=== PATIENT | female | born 1945 | race Caucasian/White ===

== ENCOUNTER → 2018-04-11 08:41 | Outpatient (CLI) | payer MEDICARE, OTHER, SELFPAY ==
[2018-04-11 09:20] LABS: Hemoglobin A1C% w Est Avg Glu 6.5 % (4.0-6.0)
[2018-04-11 09:42] LABS: Alanine Aminotransferase 24 IU/L (9-52); Albumin 4.2 g/dL (3.5-5.0); Albumin Globulin Ratio 1.3 (1.0-2.8); Alkaline Phosphatase 56 U/L (38-126); Aspartate Aminotransferase 16 IU/L (14-36); Bilirubin Total 0.3 mg/dL (0.2-1.3); Blood Urea Nitrogen 16 mg/dL (7-17); Calcium 9.7 mg/dL (8.4-10.2); Carbon Dioxide 30 mmol/L (22-32); Chloride 99 mmol/L (98-107); Cholesterol 297 mg/dL (140-199); Estimated Glomerular Filt Rate > 60.0 mL/min (>60); Globulin 3.3 g/dL (1.7-4.1); Glucose 161 mg/dL (80-110); HDL Cholesterol 73 mg/dL (40-60); HEMOLYSIS < 15 (0-50); LDL Cholesterol Calculated 201 mg/dL (<100); Potassium 3.8 mmol/L (3.4-5.1); Sodium 138 mmol/L (137-145); Total Protein 7.5 g/dL (6.3-8.2); Triglycerides 115 mg/dL (35-150)
[2018-04-11 09:45] LABS: Creatinine Urine Random 90.5 mg/dL
[2018-04-11 09:48] LABS: Microalbumi Creatinin Ratio Ur 6.6 ug/mg CR (<30); Microalbumin Urine Random < 0.6 mg/dL (0-1.6)
== END ==
PROVIDERS: Visit Provider Physician Assistant
DX: I10 Essential (primary) hypertension (principal); M10.9 Gout, unspecified; R73.01 Impaired fasting glucose; Z13.220 Encounter for screening for lipoid disorders; Z13.6 Encounter for screening for cardiovascular disorders
CPT/HCPCS: 36415; 80053; 80061; 82043; 82570; 83036; 84550

== ENCOUNTER → 2018-04-28 09:44 | Outpatient (CLI) | payer MEDICARE, OTHER, SELFPAY ==
[2018-04-30 17:58] LABS: Fecal Immunochemical Test NOT DETECTED (NOT DETECTED)
== END ==
PROVIDERS: PCP Physician Assistant; Visit Provider Physician Assistant
DX: Z12.11 Encounter for screening for malignant neoplasm of colon (principal)
CPT/HCPCS: 82274

== ENCOUNTER → 2018-10-24 08:56 | Outpatient (CLI) | payer MEDICARE, OTHER, SELFPAY ==
[2018-10-24 09:52] LABS: Blood Urea Nitrogen 12 mg/dL (7-17); Calcium 10.5 mg/dL (8.4-10.2); Carbon Dioxide 30 mmol/L (22-32); Chloride 102 mmol/L (98-107); Cholesterol 267 mg/dL (140-199); Estimated Glomerular Filt Rate > 60.0 mL/min (>60); Glucose 135 mg/dL (80-110); HDL Cholesterol 75 mg/dL (40-60); HEMOLYSIS < 15 (0-50); LDL Cholesterol Calculated 167 mg/dL (<100); Potassium 3.7 mmol/L (3.4-5.1); Sodium 140 mmol/L (137-145); Triglycerides 127 mg/dL (35-150)
== END ==
PROVIDERS: PCP Physician Assistant; Visit Provider Physician Assistant
DX: E11.9 Type 2 diabetes mellitus without complications (principal); E78.2 Mixed hyperlipidemia; I10 Essential (primary) hypertension
CPT/HCPCS: 36415; 80048; 80061; 83036

== ENCOUNTER → 2018-11-19 13:55 | Outpatient (CLI) | payer MEDICARE, OTHER, SELFPAY ==
[2018-11-19 14:27] LABS: BUN Creatinine Ratio 17.1 (6-22); Blood Urea Nitrogen 12 mg/dL (7-17); Estimated Glomerular Filt Rate > 60.0 mL/min (>60)
--- NOTE | 2018-11-19 14:53 | DI.CT.S_ITS ---
PROCEDURE: CT ABDOMEN PELVIS W CON INDICATIONS: right groin pain TECHNIQUE: After the administration of oral and intravenous contrast, 5 mm thick sections acquired from the diaphragms to the symphysis. 5 mm thick coronal and sagittal reformats were performed. For radiation dose reduction, the following was used: automated exposure control, adjustment of mA and/or kV according to patient size. COMPARISON: [facility], CT, ABDOMEN/PELVIS WITH CONTRAST, 02/22/2016, 15:58. FINDINGS: Image quality: Excellent. ABDOMEN: Lung bases: Lung bases are clear. Heart size is normal. Solid organs: Hepatic steatosis. Gallbladder not well seen. Prominence of the extra hepatic bile duct although this is unchanged since 2017. Pancreas enhances normally. There is also diffuse prominence of the pancreatic duct which is probably unchanged. Spleen is normal in size and enhancement. Diffuse left adrenal nodular hypertrophy, with unchanged appearance since 2017. The right adrenal gland is unremarkable. Mild bilateral renal cortical scarring/atrophy, and no hydronephrosis. Renal hilar vascular calcifications. Peritoneum and bowel: Stomach, small bowel, and colon loops are normal in caliber and wall thickness. No free fluid or air. Nodes and vessels: No retroperitoneal or mesenteric adenopathy. Aorta and inferior vena cava are normal in caliber. Numerous short opacifications seen throughout aorta. There is suspected left common iliac artery stent, although evaluation limited by vascular calcifications. Miscellaneous: Tiny fat containing umbilical hernia. There is also a supraumbilical ventral hernia containing fat with hazy attenuation, unchanged since 2017.. PELVIS: Genitourinary: Bladder wall thickness is normal. Miscellaneous: Small 1 cm fat containing right inguinal hernia is noted with unchanged appearance since the prior study. No femoral hernia identified. No pelvic adenopathy. Bones: No suspicious bony lesions. No vertebral body compression fractures. Diffuse osteopenia. Multilevel spondylosis. IMPRESSION: Unchanged appearance of small fat-containing right inguinal hernia, as well as supraumbilical ventral hernia since 2017. Hepatic steatosis. Elsewhere, no acute process. Additional chronic and incidental findings as above. Dictated by: Rolf Barakat M.D. on 11/19/2018 at 15:20 Approved by: Rolf Barakat M.D. on 11/19/2018 at 15:29
== END ==
PROVIDERS: PCP Physician Assistant; Visit Provider Surgery
DX: R10.31 Right lower quadrant pain (principal); K76.0 Fatty (change of) liver, not elsewhere classified; K40.90 Unilateral inguinal hernia, without obstruction or gangrene, not specified as recurrent; M85.80 Other specified disorders of bone density and structure, unspecified site; M47.819 Spondylosis without myelopathy or radiculopathy, site unspecified
CPT/HCPCS: 36415; 74177; 82565; 84520; 99214; Q9967

== ENCOUNTER 2018-11-25 06:38 | Day surgery (SDC) | payer MEDICARE, OTHER, SELFPAY ==
[2018-11-21 07:22] VITALS: BMI 28.7
[2018-11-25] VITALS (10 sets, daily range): BP systolic 151–176; BP diastolic 66–100; PULSE 57–98; RESP 12–16; TEMP 35.9–36.3; O2SAT 92–98; BMI 28.7
[2018-11-25] MEDS: LACTATED RINGERS 1,000 ML 100 ML IV (07:18)
--- NOTE | 2018-11-25 07:30 | SUR.OPER ---
Supine on padded OR bed, head on pillow, arms secured on padded arm boards at <90 degrees abduction, legs uncrossed, safety belt at thigh, tape over blanket over lower legs.
--- NOTE | 2018-11-25 07:38 | PM.PREOP ---
Pre-operative Note Interval Note History & Physical reviewed/Exam performed by Physician: Yes Changes to H&P: No
[2018-11-25] MEDS: INSULIN REGULAR 100 UNIT/ML 3 ML VIAL IV (07:44)
[2018-11-25] MEDS: CARVEDILOL 25 MG TABLET PO (07:45)
[2018-11-25] MEDS: CEFAZOLIN 2 GM/100 ML FROZ.PIGGY IV (07:50)
[2018-11-25] MEDS: BUPIVACAINE 0.25% (PF) VIAL 30 ML INJ (08:23)
--- NOTE | 2018-11-25 08:57 | SUR.PHASEI ---
reported off to Tameka MICHAUD at this time.
--- NOTE | 2018-11-25 08:58 | PM.OP.1 ---
Operative Date/Time/Diagnoses Date of procedure: 11/25/18 Time of procedure: 08:58 Pre-op diagnosis: right inguinal hernia Post-op diagnosis: same Procedure & Clinicians Same procedure as scheduled: Yes Indications: This 73-year-old female with right groin pain underwent imaging that demonstrated AA right inguinal hernia fat containing. She presented for elective laparoscopic repair with mesh. Surgeon: Abraham Blanco Click Yes if Unassisted: Yes Anesthesia Type: General Operative Notes Findings: direct hernia defect containing fat Specimen(s): none sent Estimated Blood Loss (mL): 10 Procedure in detail: The patient was brought to the operating room and placed supine on the table. Bilateral sequential compression devices were applied. General anesthesia was induced and they were intubated with an endotracheal tube. They received 2 g acne prior to skin incision. They were prepped and draped in sterile fashion. A time out was performed to ensure the correct patient, procedure and necessary equipment within the operating room. The skin was infiltrated with 0.25% bupivicaine. A 1 cm supraumbilical midline incision was made. The umbilical stalk was elevated the fascia sharply incised and the abdomen entered traumatically. A 10mm balloon port was placed and pneumoperitoneum was established at 15mm Hg. Insepction of the abdomen demonstrated no evidence of injury upon entry. Two 5 mm ports were then placed under direct visualization in the right and left lower quadrant lateral to the rectus muscle. A right direct hernia was observed. The peritoneum 3 cm superior to the myopectineal orifice between the medial umbilical ligament and the anterior superior iliac spine was incised. The peritoneal flap was retracted and the preperitoneal tissue was dissected off the flap. This was continued until a cylinder of peritoneal tissue comprising the hernia sac extending into the direct defect was identified and sac reduced back into the peritoneal cavity. The the round ligament was identified and transected. A Bard 3D Max mesh was then placed into the abdomen and positioned such that the myopectineal orifice was completely covered with good overlap on all sides. The mesh was anchored to the Taurus?s ligament. The peritoneal flap was then repositioned back to its original position and tacks were used to anchor it in position such that no bowel could herniate into the preperitoneal space. The area was examined for hemostasis. The 5mm trocars were removed under direct visualization and pneumoperitoneum was deflated through the umbilical trocar, The fascia at the umbilicus was closed with 0-Vicryl in figure of 8 fashion, skin closed with 4-0 Monocyl followed by Dermabond. The sponge and instrument count at the end of the case was correct. Both testicles were entirely within the scrotum at the end of the case. The patient emerged from anesthsia was extubated and transferred to recovery in stable condition. Complications: none Post-operative Condition: stable Disposition: same day surgery
--- NOTE | 2018-11-25 09:28 | SUR.PHASEI ---
Patient A/O x 4. SHARP's x 4. Tolerating po. Dressing CDI. Ice pack applied.
[2018-11-25] MEDS: OXYCODONE/ACETAMINOPHEN 5/325 TABLET 1 TAB PO ×2 (09:30→10:18)
--- NOTE | 2018-11-25 09:32 | SUR.PHASEI ---
Gave po pain medication for c/o 5\10 pain.
== END 2018-11-25 10:51 | disposition home or self-care (01) ==
PROVIDERS: PCP Physician Assistant; Visit Provider Surgery
PROC: 0YQ54ZZ Repair Right Inguinal Region, Percutaneous Endoscopic Approach (ICD-10-PCS; CPT 49650; principal; 2018-11-25 07:45)
DX: K40.90 Unilateral inguinal hernia, without obstruction or gangrene, not specified as recurrent (principal); E11.9 Type 2 diabetes mellitus without complications
CPT/HCPCS: 49650; 49560; C1781; J0171; J0690; J1100; J2250; J2405; J2704; J3010

== ENCOUNTER → 2019-01-16 08:24 | Outpatient (CLI) | payer MEDICARE, OTHER, SELFPAY ==
[2019-01-16 09:27] LABS: Calcium 10.4 mg/dL (8.4-10.2); Cholesterol 208 mg/dL (140-199); HDL Cholesterol 69 mg/dL (40-60); LDL Cholesterol Calculated 112 mg/dL (<100); Triglycerides 134 mg/dL (35-150)
[2019-01-20 13:51] LABS: Parathyroid Hormone Int 59 pg/mL (14-64)
[2019-01-20 15:12] LABS: Ionized Calcium 5.2 mg/dL (4.8-5.6)
== END ==
PROVIDERS: PCP Physician Assistant; Visit Provider Physician Assistant
DX: E83.52 Hypercalcemia (principal); E78.2 Mixed hyperlipidemia
CPT/HCPCS: 36415; 80061; 82310; 82330; 83970

== ENCOUNTER 2019-07-23 09:40 | Emergency (ER) | payer MEDICARE, OTHER, SELFPAY ==
--- NOTE | 2019-07-23 09:46 | ED.GENADULT ---
HPI - General Adult General Chief complaint: Back Pain/Injury Stated complaint: 'owie in back' that goes down the leg Time Seen by Provider: 07/23/19 09:41 Source: patient Mode of arrival: Ambulatory Limitations: no limitations History of Present Illness HPI narrative: 74-year-old female here for evaluation of right lower back pain radiating into her right upper leg. She states that she had the same symptoms 2 nights ago where she was seen in outside facility. She states that she was given medications through an IV which completely resolved her symptoms. States that she felt well yesterday however this morning she woke up and she was trying to get out of bed the pain returned. She states she did urinate on herself this morning but that was because she could not get out of bed in time. No fevers. No bowel symptoms. Does have bilateral iliac stents placed secondary to obstructions that was done 2 years ago. Related Data Home Medications Medication Instructions Recorded Confirmed aspirin 81 mg PO QDAY #0 10/11/16 01/19/19 carvedilol 25 mg tablet 25 mg PO BID 04/29/18 01/19/19 potassium chloride 10 mEq 10 meq PO BID 04/29/18 01/19/19 capsule,extended release coenzyme Q10 100 mg capsule 100 mg PO DAILY 06/18/18 01/19/19 Previous Rx's Medication Instructions Recorded meloxicam 7.5 mg tablet 7.5 mg PO DAILY PRN #30 tab 11/20/18 acetaminophen [Tylenol] 650 mg PO QID PRN #60 cap 11/25/18 citalopram 40 mg tablet 40 mg PO QDAY #30 tab 01/13/19 magnesium chloride 64 mg 64 mg PO DAILY #30 tab 01/19/19 (magnesium chloride) tablet,delayed release Disabled Parking Placard #1 ea 03/09/19 rosuvastatin 10 mg tablet 10 mg PO BEDTIME #90 tab 03/23/19 amlodipine 5 mg tablet 5 mg PO QDAY #30 tab 06/12/19 furosemide 40 mg tablet 40 mg PO DAILY #30 tab 06/12/19 lisinopril 20 mg tablet 20 mg PO BID #60 tab 06/12/19 cyclobenzaprine 10 mg PO TID PRN #12 tab 07/23/19 tramadol [Ultram] 50 mg PO Q8H PRN #10 tab 07/23/19 Allergies Allergy/AdvReac Type Severity Reaction Status Date / Time vitamin E (d-alpha AdvReac Intermediate LITTLE Verified 07/23/19 09:52 tocopherol) RED ITCHY [VITAMIN E] STRAWBERRY BUMPS Review of Systems Constitutional Constitutional: Denies fever(s) and Denies headache(s) ENT Ears, Nose, Mouth, and Throat: Denies headache(s) and Denies sore throat Cardiovascular Cardiovascular: Denies chest pain and Denies dyspnea Respiratory Respiratory: Denies cough and Denies dyspnea Gastrointestinal Gastrointestinal: Denies abdominal pain, Denies change in bowel habits, Denies diarrhea and Denies loose stools Genitourinary Genitourinary: Denies urinary hesitancy, Denies urinary incontinence and Denies urinary urgency Genitourinary: Denies urinary incontinence, Denies urinary hesitancy and Denies urinary urgency Musculoskeletal Musculoskeletal: Reports back pain (Right lower back) Integumentary/Breasts Skin/Breast: Denies lesions and Denies rash Neurologic Neurologic: Denies behavioral changes and Denies headache(s) Comments: Some tingling right lower extremity Psychiatric Psychiatric: Denies behavioral changes Hematologic/Lymphatic Hematologic/Lymphatic: Denies easy bleeding and Denies easy bruising Patient History Medical History Cervical cancer (Resolved 1975) Chronic back pain (Chronic 1963) Depression (Chronic 2000) Diabetes (Chronic Unknown) Hypercholesterolemia (Chronic Unknown) Hypertension (Chronic Unknown) Leg pain, bilateral (Resolved ~2016) Peripheral vascular disease (Acute) Rubella (Resolved 1968) Urinary incontinence (Chronic 2012) Surgical History (Updated 11/21/18 @ 07:37 by Shazia Storey RN) History of esophagogastroduodenoscopy (EGD) (Acute ~2017) History of intravascular stent placement (Acute) Status post cholecystectomy Status post hysterectomy Family History Father Stroke Hypertension Mother High cholesterol Hypertension Cardiovascular disease Diabetes mellitus Amputated right leg Smoker EtOH dependence Social History household members: spouse Smoking Status: Former smoker Tobacco: How many years used: 12 second hand exposure: No alcohol intake: former substance use type: marijuana Smoking Status: Former smoker Substance Use Type: marijuana Exam Initial Vital Signs Initial Vital Signs: Vital Signs Temperature 98.5 F 07/23/19 09:49 Pulse Rate 73 07/23/19 09:49 Respiratory Rate 16 07/23/19 09:49 Blood Pressure 205/91 H 07/23/19 09:49 Pulse Oximetry 97 07/23/19 09:49 Const General: cooperative, No comfortable (Uncomfortable), well developed and well groomed Limitations: mental status not altered HENMT Head: normal to inspection and normocephalic Resp Effort & Inspection: normal respiratory effort Cardio Rate: regular rate Pulses: dorsalis pedis present bilaterally Back/Spine/Pelvis Back: No CVA tenderness Thoracic/Lumbar Spine: paraspinal tenderness (Right lumbar), No thoracic spinal tenderness and No lumbar spinal tenderness Skin Lesions: no lesions Rashes: no rashes Neuro General: patient alert and patient awake Extrem General: normal to inspection and capillary refill normal Psych Appearance: grossly normal and well kempt Scores GCS Speed coma scale eye opening: Spontaneous Camron coma scale verbal response: Orientated Camron coma scale motor response: Obey commands Speed coma scale total score: 15 Course Orders Ordered: Discontinued Medications Morphine Sulfate (Morphine) 4 mg IM NOW ONE Stop: 07/23/19 09:55 Last Admin: 07/23/19 10:05 Dose: 4 mg Documented by: KENDALL Vital Signs Vital signs: Vital Signs - 8 hr 07/23/19 09:49 07/23/19 11:05 Temperature 98.5 F Pulse Rate 73 61 Respiratory Rate 16 16 Blood Pressure 205/91 H Blood Pressure [Left Arm] 183/86 H Pulse Oximetry 97 96 Medical Decision Making Medical Records Medical records reviewed: Yes I reviewed the patient's medical records. MDM Narrative Medical decision making narrative: Received fax from the patient's emergency department visit at an outside facility from 3 days ago. According to this note patient presented at that time very similar to how she presents today. During that visit she received a CT scan of her abdomen pelvis which showed atherosclerotic aortic disease however a normal size caliber aorta. There was no signs of kidney stones. She also had an ultrasound of her lower back which showed no foreign body and no definitive lipoma. Patient does have a follow-up with her primary doctor this afternoon. I do have a strong suspicion that patient's symptoms today are musculoskeletal in origin. I feel we can hold on radiologic studies since she had fairly extensive workup just 3 days ago for the same pain that brought her in today. She feels much better after the medication she was given here today. Will send home with symptom control. Her prescriptions were electronically sent to the pharmacy of her choice. She was given return precautions. She expressed understanding and agreement. Patient ambulated to the bathroom prior to discharge. Discharge Plan Departure Patient Disposition: Home Clinical Impression: Lower back pain Qualifiers: Chronicity: acute Back pain laterality: right Sciatica presence: without sciatica Qualified Code(s): M54.5 - Low back pain Instructions: DI for Back Spasm Activity Restrictions/Additional Instructions: Recommend that you keep your appointment with your primary doctor this afternoon. Prescriptions were sent to [facility]. Return to the emergency department for any new symptoms. Prescriptions: New cyclobenzaprine 10 mg tablet 10 mg PO TID PRN (Reason: muscle spasm) Qty: 12 RF: 0 tramadol [Ultram] 50 mg tablet 50 mg PO Q8H PRN (Reason: pain) Qty: 10 RF: 0 No Action aspirin 81 MG tablet,delayed release (DR/EC) 81 mg PO QDAY Qty: 0 RF: 0 carvedilol 25 mg tablet 25 mg PO BID RF: 0 potassium chloride 10 mEq capsule, extended release 10 meq PO BID RF: 0 meloxicam 7.5 mg tablet 7.5 mg PO DAILY PRN (Reason: arthritis pain) Qty: 30 RF: 6 citalopram 40 mg tablet 40 mg PO QDAY Qty: 30 RF: 6 (DME) Disabled Parking Placard Qty: 1 RF: 0 rosuvastatin 10 mg tablet 10 mg PO BEDTIME Qty: 90 RF: 1 amlodipine [Norvasc] 5 mg tablet 5 mg PO QDAY Qty: 30 RF: 3 lisinopril 20 mg tablet 20 mg PO BID Qty: 60 RF: 6 furosemide 40 mg tablet 40 mg PO DAILY Qty: 30 RF: 3 magnesium chloride 64 mg tablet,delayed release (DR/EC) 64 mg PO DAILY Qty: 30 RF: 3 coenzyme Q10 [Co Q-10] 100 mg capsule 100 mg PO DAILY RF: 0 acetaminophen [Tylenol] 325 mg capsule 650 mg PO QID PRN (Reason: pain) Qty: 60 RF: 0 Referrals: Faith Belcher ARNP [Primary Care Provider] -
[2019-07-23 09:49] VITALS: BP 205/91; PULSE 73; RESP 16; TEMP 36.9; O2SAT 97; BMI 29.9
--- NOTE | 2019-07-23 09:49 | PC.NURSE ---
Pt denies loss bowel/bladder. pt denies injury
[2019-07-23] MEDS: MORPHINE 4 MG/ML INJ IM (10:05)
[2019-07-23 11:05] VITALS: BP 183/86; PULSE 61; RESP 16; O2SAT 96
== END 2019-07-23 11:36 | disposition home or self-care (01) ==
PROVIDERS: Emergency Provider Emergency Medicine; PCP Nurse Practitioner
DX: M54.41 Lumbago with sciatica, right side (principal)
CPT/HCPCS: 96372; 99283; J2270

== ENCOUNTER → 2019-11-25 10:02 | Outpatient (CLI) | payer MEDICARE, OTHER, SELFPAY ==
[2019-11-25 12:09] LABS: Hemoglobin A1C% w Est Avg Glu 6.4 % (4.0-6.0)
[2019-11-25 12:27] LABS: Alanine Aminotransferase 15 IU/L (<35); Albumin 4.4 g/dL (3.5-5.0); Albumin Globulin Ratio 1.4 (1.0-2.8); Alkaline Phosphatase 80 U/L (38-126); Aspartate Aminotransferase 20 IU/L (14-36); Bilirubin Total 0.4 mg/dL (0.2-1.3); Blood Urea Nitrogen 11 mg/dL (7-17); Calcium 10.1 mg/dL (8.4-10.2); Carbon Dioxide 26 mmol/L (22-32); Chloride 104 mmol/L (98-107); Cholesterol 223 mg/dL (140-199); Estimated Glomerular Filt Rate > 60.0 mL/min (>60); Globulin 3.1 g/dL (1.7-4.1); Glucose 128 mg/dL (80-110); HDL Cholesterol 93 mg/dL (40-60); HEMOLYSIS < 15 (0-50); LDL Cholesterol Calculated 106 mg/dL (<100); Potassium 3.9 mmol/L (3.4-5.1); Sodium 138 mmol/L (137-145); Total Protein 7.5 g/dL (6.3-8.2); Triglycerides 119 mg/dL (35-150)
[2019-11-25 12:47] LABS: Free T3, Triiodothyronine Free 3.54 pg/mL (2.77-5.27); Free T4, Direct Thyroxine 1.07 ng/dL (0.78-2.19)
[2019-11-25 13:01] LABS: Thyroid Stimulating Hormone 1.11 uIU/mL (0.47-4.68)
[2019-11-25 15:45] LABS: Creatinine Urine Random 24.8 mg/dL
[2019-11-25 15:48] LABS: Microalbumi Creatinin Ratio Ur 84.6 ug/mg CR (<30); Microalbumin Urine Random 2.1 mg/dL (0-1.6)
[2019-11-26 09:22] LABS: Fecal Immunochemical Test Negative (Negative)
== END ==
PROVIDERS: PCP Nurse Practitioner; Referring Provider Nurse Practitioner; Visit Provider Nurse Practitioner
DX: E11.9 Type 2 diabetes mellitus without complications (principal); E78.2 Mixed hyperlipidemia; F41.8 Other specified anxiety disorders; I10 Essential (primary) hypertension; Z12.11 Encounter for screening for malignant neoplasm of colon; Z79.899 Other long term (current) drug therapy
CPT/HCPCS: 36415; 80053; 80061; 82043; 82274; 82570; 83036; 84439; 84443; 84481

== ENCOUNTER → 2019-12-04 11:11 | Outpatient (CLI) | payer MEDICARE, OTHER, SELFPAY ==
--- NOTE | 2019-12-04 12:02 | DI.CT.S_ITS ---
PROCEDURE: CT ABDOMEN PELVIS W CON INDICATIONS: LUQ pain r/o ventral hernia TECHNIQUE: After the administration of oral and intravenous contrast, 5 mm thick sections acquired from the diaphragms to the symphysis. 5 mm thick coronal and sagittal reformats were performed. For radiation dose reduction, the following was used: automated exposure control, adjustment of mA and/or kV according to patient size. COMPARISON: [facility], CT, CT ABDOMEN PELVIS W CON, 11/19/2018, 14:50. FINDINGS: Image quality: Excellent. ABDOMEN: Lung bases: Lung bases are clear. Heart size is normal. Solid organs: Liver is normal in size and enhancement. Gallbladder is surgically absent. Chronic dilatation of the entire the biliary tree post cholecystectomy. Chronic mild dilatation of the pancreatic duct as well. Pancreas enhances normally. Spleen is normal in size and enhancement. Unchanged chronic enlargement of the left adrenal, consistent with adenomatous change. Kidneys are normal in size and enhancement, without hydronephrosis. Peritoneum and bowel: Stomach, small bowel, and colon loops are normal in caliber and wall thickness. No free fluid or air. Nodes and vessels: No retroperitoneal or mesenteric adenopathy. Aorta and inferior vena cava are normal in caliber. Extensive aortic atherosclerotic calcifications. Patent bilateral common iliac artery stents. There is calcified plaque of the proximal left common iliac artery which narrows the diameter of the common iliac stent, with moderate common iliac artery stenosis noted. Miscellaneous: Small ventral hernia on image 29/2 at the level of the left lobe of the liver, containing fat. This is unchanged. PELVIS: Genitourinary: Bladder wall thickness is normal. Miscellaneous: No inguinal hernias or adenopathy. No evidence of right inguinal hernia. Uterus is surgically absent. Bones: No suspicious bony lesions. No vertebral body compression fractures. IMPRESSION: 1. As before, small ventral hernia anterior to the left lobe of the liver containing fat. 2. Extensive aortic atherosclerotic calcifications. 3. Patent bilateral common iliac artery stents. There is a moderate right common iliac artery stenosis secondary to chunky calcification outside of the stent. 4. No evidence of acute abdominal process. 5. Chronic dilatation of the biliary tree and pancreatic duct post cholecystectomy. 6. Remote hysterectomy. Dictated by: Abe Coughlin M.D. on 12/04/2019 at 13:54 Approved by: Abe Coughlin M.D. on 12/04/2019 at 14:02
== END ==
PROVIDERS: PCP Nurse Practitioner; Referring Provider Surgery; Visit Provider Surgery
DX: R10.12 Left upper quadrant pain (principal); K83.8 Other specified diseases of biliary tract; K86.89 Other specified diseases of pancreas; K43.9 Ventral hernia without obstruction or gangrene; I70.0 Atherosclerosis of aorta; I70.8 Atherosclerosis of other arteries; Z90.49 Acquired absence of other specified parts of digestive tract; Z90.710 Acquired absence of both cervix and uterus
CPT/HCPCS: 74177; Q9967

== ENCOUNTER 2020-01-13 08:30 | Emergency (ER) | payer MEDICARE, OTHER, SELFPAY ==
[2020-01-13 08:38] VITALS: BP 199/85; PULSE 82; RESP 18; TEMP 35; O2SAT 95; BMI 30.4
[2020-01-13 08:40] VITALS: PULSE 80
--- NOTE | 2020-01-13 08:44 | DI.RAD.S_ITS ---
PROCEDURE: XR KNEE LT 3V INDICATIONS: Medial pain after injury yesterday TECHNIQUE: 3 views of the knee were acquired. COMPARISON: None. FINDINGS: Bones: No fractures or dislocations. No suspicious bony lesions. Soft tissues: Mild joint effusion. No suspicious soft tissue calcifications. IMPRESSION: Mild effusion. No visualized acute fracture or dislocation. However, if clinical concern and/or pain persist, short interval imaging followup in 7-10 days is recommended, as occult injury cannot be definitively excluded. Dictated by: Cecy Thompson M.D. on 01/13/2020 at 8:14 Approved by: Cecy Thompson M.D. on 01/13/2020 at 8:21
--- NOTE | 2020-01-13 08:49 | ED_ITS ---
HPI - General Adult General Chief complaint: Extremity Injury, Lower Stated complaint: 'blew out my knee yesterday' Time Seen by Provider: 01/13/20 08:30 Source: patient Mode of arrival: Wheelchair Limitations: no limitations History of Present Illness HPI narrative: 74-year-old female here for evaluation of left knee pain. Patient states that yesterday when she got out of her car she felt/heard a pop on the inside of her right knee. Since then she has had discomfort with straightening her leg and also with standing. She states that for years she had a ?bulge? on the inside of her knee. I did not cause her any problems and she thought that whatever happened yesterday was related to this bulge. Has had no prior knee injuries. No prior knee surgeries. Related Data Home Medications Medication Instructions Recorded Confirmed aspirin 81 mg PO QDAY #0 10/11/16 11/25/19 potassium chloride 10 mEq 10 meq PO BID 04/29/18 11/25/19 capsule,extended release coenzyme Q10 100 mg capsule 100 mg PO DAILY 06/18/18 11/25/19 Previous Rx's Medication Instructions Recorded acetaminophen [Tylenol] 650 mg PO QID PRN #60 cap 11/25/18 magnesium chloride 64 mg 64 mg PO DAILY #30 tab 01/19/19 (magnesium chloride) tablet,delayed release Disabled Parking Placard #1 ea 03/09/19 lisinopril 20 mg tablet 20 mg PO BID #60 tab 06/12/19 cyclobenzaprine 10 mg PO TID PRN #12 tab 07/23/19 citalopram 40 mg tablet 40 mg PO QDAY #90 tab 09/21/19 rosuvastatin 10 mg tablet 10 mg PO BEDTIME #90 tab 09/21/19 amlodipine 5 mg tablet 5 mg PO QDAY #90 tab 11/25/19 furosemide 40 mg tablet 40 mg PO DAILY #90 tab 11/25/19 Allergies Allergy/AdvReac Type Severity Reaction Status Date / Time vitamin E (d-alpha AdvReac Intermediate LITTLE Verified 11/25/19 10:56 tocopherol) RED ITCHY [VITAMIN E] STRAWBERRY BUMPS Review of Systems Constitutional Constitutional: Denies fever(s) Musculoskeletal Musculoskeletal: Denies tingling Comments: Left knee pain Integumentary/Breasts Skin/Breast: Denies lesions and Denies rash Neurologic Neurologic: Denies behavioral changes and Denies tingling Psychiatric Psychiatric: Denies behavioral changes Hematologic/Lymphatic Hematologic/Lymphatic: Denies easy bleeding and Denies easy bruising Patient History Medical History (Updated 01/13/20 @ 09:33 by Terry Lemus DO) Cervical cancer (1975) Chronic back pain (1963) Depression (2000) Diabetes (Unknown) Hernia of abdominal wall Hypercholesterolemia (Unknown) Hypertension (Unknown) Leg pain, bilateral (~2017) Peripheral vascular disease Rubella (1968) Urinary incontinence (2012) Surgical History History of esophagogastroduodenoscopy (EGD) (~2016) History of intravascular stent placement Status post cholecystectomy Status post hysterectomy Family History Father Stroke Hypertension Mother High cholesterol Hypertension Cardiovascular disease Diabetes mellitus Amputated right leg Smoker EtOH dependence Social History household members: spouse Smoking Status: Former smoker Tobacco: How many years used: 12 second hand exposure: No alcohol intake: former substance use type: marijuana Smoking Status: Former smoker Substance Use Type: marijuana Exam Initial Vital Signs Initial Vital Signs: Vital Signs Temperature 95 F L 01/13/20 08:38 Pulse Rate 82 01/13/20 08:38 Respiratory Rate 18 01/13/20 08:38 Blood Pressure 199/85 H 01/13/20 08:38 Pulse Oximetry 95 01/13/20 08:38 Const General: cooperative and comfortable Limitations: mental status not altered HENCA Head: normal to inspection and normocephalic Resp Effort & Inspection: normal respiratory effort Cardio Rate: regular rate Extrem Other: No tenderness to palpation over the quadriceps or patellar tendon. No proximal fibular head tenderness. No hamstring tenderness. No lateral joint line tenderness. Does have tenderness to palpation along the anterior portion of the medial joint line. There is no effusion. ACL MCL PCL and LCL all intact with functional testing. Patient able to bend her knee however it does hurt on the medial joint line. Is able to do a straight leg raise. Psych Appearance: grossly normal and well kempt Procedures Orthopedic Splinting/Casting Injury #1: Side: left Lower Extremity Injury Location: knee Lower Extremity Immobilizer: Norberto wrap Other Orthopedic Equipment: crutches Post splinting neuro exam: intact Post splinting vascular exam: intact Placed by: Nursing Course Orders Ordered: ED Orders 01/13/20 08:44 XR knee LT 3V Stat Vital Signs Vital signs: Vital Signs - 8 hr 01/13/20 08:38 01/13/20 08:40 Temperature 95 F L Pulse Rate 82 Pulse Rate [Left Dorsalis Pedis] 80 Respiratory Rate 18 Blood Pressure 199/85 H Pulse Oximetry 95 Medical Decision Making Imaging Data Extremity x-ray #1: Radiologist's Impression: [address] [id number] ReportSigned Patient: Amie Painter KMR#: [id number]: 8Acct:[id number]/Sex: 74 / FDate of Service: 01/13/20Loc: EDAccession Number: [id number] Procedure: XR knee LT 3V Ordering Provider: Terry Lemus D.O. PROCEDURE: XR KNEE LT 3V INDICATIONS: Medial pain after injury yesterday TECHNIQUE: 3 views of the knee were acquired. COMPARISON: None. FINDINGS: Bones: No fractures or dislocations. No suspicious bony lesions. Soft tissues: Mild joint effusion. No suspicious soft tissue calcifications. IMPRESSION: Mild effusion. No visualized acute fracture or dislocation. However, if clinical concern and/or pain persist, short interval imaging followup in 7-10 days is recommended, as occult injury cannot be definitively excluded. Dictated by: Cecy Thompson M.D. on 01/13/2020 at 8:14 Approved by: Cecy Thompson M.D. on 01/13/2020 at 8:21 [facility] Narrative Medical decision making narrative: Patient is neurovascularly intact. No fracture seen on the x-rays. I do suspect a meniscal injury given her clinical presentation. No indication for MRI here in the emergency department. Will send home with an Norberto bandage and crutches. She is going to follow up with her primary provider. She was given return precautions. She expressed understanding and agreement. Discharge Plan Departure Patient Disposition: Home Clinical Impression: Injury, knee Instructions: How to Use Crutches, How to Use an Elastic Bandage-Knee Sprain, How To Perform RICE (Rest, Ice, Compress, Elevate) Activity Restrictions/Additional Instructions: Continue all of your medications as directed. Use the crutches and the Norberto bandage as needed. There were no fractures on the x-ray so you can put pressure on your leg has you tolerate. Contact your primary provider today to schedule a follow-up for after the holidays. Return to the emergency department for any new symptoms Prescriptions: No Action aspirin 81 MG tablet,delayed release (DR/EC) 81 mg PO QDAY Qty: 0 RF: 0 potassium chloride 10 mEq capsule, extended release 10 meq PO BID RF: 0 (DME) Disabled Parking Placard Qty: 1 RF: 0 lisinopril 20 mg tablet 20 mg PO BID Qty: 60 RF: 6 citalopram 40 mg tablet 40 mg PO QDAY Qty: 90 RF: 1 rosuvastatin 10 mg tablet 10 mg PO BEDTIME Qty: 90 RF: 3 furosemide 40 mg tablet 40 mg PO DAILY Qty: 90 RF: 3 amlodipine [Norvasc] 5 mg tablet 5 mg PO QDAY Qty: 90 RF: 3 magnesium chloride 64 mg tablet,delayed release (DR/EC) 64 mg PO DAILY Qty: 30 RF: 3 coenzyme Q10 [Co Q-10] 100 mg capsule 100 mg PO DAILY RF: 0 acetaminophen [Tylenol] 325 mg capsule 650 mg PO QID PRN (Reason: pain) Qty: 60 RF: 0 cyclobenzaprine 10 mg tablet 10 mg PO TID PRN (Reason: muscle spasm) Qty: 12 RF: 0 Referrals: Faith Belcher ARNP [Primary Care Provider] -
--- NOTE | 2020-01-13 10:08 | PC.NURSE ---
provided pt a walker instead of crutches, dr ornelas aware.
[2020-01-13 10:10] VITALS: BP 188/81; PULSE 76; RESP 18; O2SAT 98
== END 2020-01-13 10:11 | disposition home or self-care (01) ==
PROVIDERS: Emergency Provider Emergency Medicine; PCP Nurse Practitioner
DX: S89.92XA Unspecified injury of left lower leg, initial encounter (principal); Z79.82 Long term (current) use of aspirin
CPT/HCPCS: 73562; 99283

== ENCOUNTER → 2020-01-20 15:16 | Outpatient (CLI) | payer MEDICARE, OTHER, SELFPAY ==
--- NOTE | 2020-01-20 15:19 | DI.MRI.S_ITS ---
PROCEDURE: MR KNEE LT WO CON INDICATIONS: r/o left knee miniscus tear TECHNIQUE: Noncontrast sagittal PD fast spin echo and T2 fast spin echo with fat saturation, sagittal 3-D FLASH with fat saturation; coronal T1 spin echo and PD fast spin echo with fat saturation, and axial PD fast spin echo with fat saturation through the knee. COMPARISON: [facility], CR, XR KNEE ARTHRITIC SERIES BI, 03/14/2016, 16:06. [facility], CR, XR KNEE LT 3V, 01/13/2020, 8:55. FINDINGS: Image quality: Excellent. Menisci: There is complex tear of the posterior horn and body of the medial meniscus. The free edge of the posterior horn and body body appears truncated. The lateral meniscus demonstrates normal morphology and internal signal. The meniscal root ligaments appear intact. Cruciate ligaments: The anterior and posterior cruciate ligaments appear intact. Medial structures: The medial collateral ligament appears intact. The semimembranosus tendon insertions and meniscocapsular junction appear intact. Visualized portions of the pes anserinus tendons appear normal. No abnormal bursal fluid. Lateral structures: The lateral collateral ligament, long and short heads of the biceps femoris tendon appear intact. The popliteus tendon appears normal. Iliotibial band appears normal. Anterior structures: The quadriceps and patellar tendons appear intact. Patellar alignment is normal. No femoral trochlear dysplasia or ventral trochlear prominence. There is infrapatellar fat pad.edema. Bones and cartilage: No bone marrow contusions or fractures. 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 There is bone marrow edema in the medial tibial plateau, likely reactive changes related to near [id number]. There is full-thickness defect in the inferior lateral aspect of patella with associated subchondral edema and cystic change. Joint space: There is moderate sized knee joint fluid. A moderate-sized Pizarro's cyst. Normal appearing synovial plicae are incidentally noted. IMPRESSION: 1. Complex tear of the posterior horn and body of the medial meniscus. 2. 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 3. Chondromalacia patella with full-thickness cartilage defect in the lateral inferior aspect of the patella with associated subchondral edema and cystic change. There is edema in the infrapatellar fat pad. The findings suggest infrapatellar fat pad impingement. 4. Moderate knee joint effusion. 5. A moderate-sized Pizarro cyst. Dictated by: Lainey Kearney M.D. on 01/20/2020 at 16:28 Approved by: Lainey Kearney M.D. on 01/20/2020 at 17:51
== END ==
PROVIDERS: PCP Nurse Practitioner; Referring Provider Nurse Practitioner; Visit Provider Nurse Practitioner
DX: S83.232A Complex tear of medial meniscus, current injury, left knee, initial encounter (principal); M22.42 Chondromalacia patellae, left knee; M25.462 Effusion, left knee; M71.22 Synovial cyst of popliteal space [Baker], left knee; X58.XXXA Exposure to other specified factors, initial encounter
CPT/HCPCS: 73721

== ENCOUNTER → 2020-09-22 07:57 | Outpatient (CLI) | payer MEDICARE, OTHER, SELFPAY ==
[2020-09-22 10:29] LABS: Hemoglobin A1C% w Est Avg Glu 6.5 % (4.0-6.0)
[2020-09-22 10:47] LABS: Alanine Aminotransferase 16 IU/L (<35); Albumin 4.2 g/dL (3.5-5.0); Albumin Globulin Ratio 1.4 (1.0-2.8); Alkaline Phosphatase 66 U/L (38-126); Aspartate Aminotransferase 21 IU/L (14-36); BUN Creatinine Ratio 21.1 (6-22); Bilirubin Total 0.4 mg/dL (0.2-1.3); Blood Urea Nitrogen 12 mg/dL (7-17); Calcium 10.4 mg/dL (8.4-10.2); Carbon Dioxide 25 mmol/L (22-32); Chloride 106 mmol/L (98-107); Cholesterol 314 mg/dL (140-199); Estimated Glomerular Filt Rate > 60.0 mL/min (>60); Globulin 3.1 g/dL (1.7-4.1); Glucose 157 mg/dL (80-110); HDL Cholesterol 82 mg/dL (40-60); HEMOLYSIS < 15 (0-50); LDL Cholesterol Calculated 201 mg/dL (<100); Magnesium 1.8 mg/dL (1.6-2.3); Potassium 4.2 mmol/L (3.4-5.1); Sodium 139 mmol/L (137-145); Total Protein 7.3 g/dL (6.3-8.2); Triglycerides 157 mg/dL (35-150)
[2020-09-22 10:54] LABS: Free T3, Triiodothyronine Free 3.44 pg/mL (2.77-5.27); Free T4, Direct Thyroxine 0.93 ng/dL (0.78-2.19)
[2020-09-22 11:07] LABS: Thyroid Stimulating Hormone 1.15 uIU/mL (0.47-4.68)
== END ==
PROVIDERS: PCP Nurse Practitioner; Referring Provider Nurse Practitioner; Visit Provider Nurse Practitioner
DX: E11.9 Type 2 diabetes mellitus without complications (principal); E78.2 Mixed hyperlipidemia; I10 Essential (primary) hypertension; I73.9 Peripheral vascular disease, unspecified; Z79.899 Other long term (current) drug therapy; E83.42 Hypomagnesemia
CPT/HCPCS: 36415; 80053; 80061; 83036; 83735; 84439; 84443; 84481

== ENCOUNTER → 2020-09-26 17:54 | Outpatient (CLI) | payer MEDICARE, OTHER, SELFPAY ==
[2020-09-26 18:47] LABS: Creatinine Urine Random 109.2 mg/dL
[2020-09-26 18:51] LABS: Microalbumi Creatinin Ratio Ur 5.4 ug/mg CR (<30); Microalbumin Urine Random 0.6 mg/dL (0-1.6)
[2020-09-27 10:08] LABS: Fecal Immunochemical Test Negative (Negative)
== END ==
PROVIDERS: PCP Nurse Practitioner; Referring Provider Nurse Practitioner; Visit Provider Nurse Practitioner
DX: E11.9 Type 2 diabetes mellitus without complications (principal); E78.2 Mixed hyperlipidemia; I10 Essential (primary) hypertension; I73.9 Peripheral vascular disease, unspecified; Z79.899 Other long term (current) drug therapy
CPT/HCPCS: 82043; 82274; 82570

== ENCOUNTER → 2021-07-25 15:55 | Outpatient (CLI) | payer MEDICARE, OTHER, SELFPAY ==
--- NOTE | 2021-07-25 15:57 | DI.US.S_ITS ---
PROCEDURE: US PELVIC COMPLETE INDICATIONS: Pelvic cramping x1 month TECHNIQUE: Real-time scanning was performed of the pelvic organs, with image documentation. Additional endovaginal scanning was necessary due to incomplete visualization of the adnexal and endometrial structures by transabdominal scanning. COMPARISON: [facility], CT, CT ABDOMEN PELVIS W CON, 12/04/2019, 11:29. FINDINGS: Uterus: Status post hysterectomy. Ovaries: The bilateral ovaries were not visualized on today's examination. Other: No pathologic free abdominal or pelvic fluid. No suspicious masses or fluid collection seen. IMPRESSION: Status post hysterectomy. Nonvisualization of the bilateral ovary/adnexa. We strive to produce accurate, complete, and clear reports of imaging services. To assist us in improving patient care, this report was composed using standard report templates and voice recognition software. Therefore, it may contain abnormal punctuation, insertions and/or omissions. Occasional wrong-word or sound-alike substitutions may occur. Though we review the report and make efforts to correct it, we do recommend that the report be read carefully in proper context to recognize any text inaccuracies. Dictated by: Martinez Liu M.D. on 07/25/2021 at 17:24 Approved by: Martinez Liu M.D. on 07/25/2021 at 17:27
== END ==
PROVIDERS: PCP Nurse Practitioner; Referring Provider Nurse Practitioner; Visit Provider Nurse Practitioner
DX: R10.2 Pelvic and perineal pain (principal); Z90.710 Acquired absence of both cervix and uterus
CPT/HCPCS: 76830; 76856

== ENCOUNTER → 2021-12-20 09:58 | Outpatient (CLI) | payer MEDICARE, OTHER, SELFPAY ==
[2021-12-20 11:41] LABS: Alanine Aminotransferase 16 IU/L (<35); Albumin 3.8 g/dL (3.5-5.0); Albumin Globulin Ratio 1.2 (1.0-2.8); Alkaline Phosphatase 73 U/L (38-126); Aspartate Aminotransferase 16 IU/L (14-36); BUN Creatinine Ratio 21.1 (6-22); Bilirubin Total 0.2 mg/dL (0.2-1.3); Blood Urea Nitrogen 16 mg/dL (7-17); Calcium 9.4 mg/dL (8.4-10.2); Carbon Dioxide 29 mmol/L (22-32); Chloride 104 mmol/L (98-107); Cholesterol 249 mg/dL (140-199); Estimated Glomerular Filt Rate > 60 mL/min (>60); Globulin 3.2 g/dL (1.7-4.1); Glucose 147 mg/dL (80-110); HDL Cholesterol 60 mg/dL (40-60); HEMOLYSIS < 15 (0-50); LDL Cholesterol Calculated 165 mg/dL (<100); Potassium 3.8 mmol/L (3.4-5.1); Sodium 138 mmol/L (137-145); Triglycerides 122 mg/dL (35-150)
[2021-12-20 11:53] LABS: Free T3, Triiodothyronine Free 3.35 pg/mL (2.77-5.27); Free T4, Direct Thyroxine 1.24 ng/dL (0.78-2.19)
[2021-12-20 12:07] LABS: Thyroid Stimulating Hormone 0.571 uIU/mL (0.47-4.68)
[2021-12-20 13:00] LABS: Hemoglobin A1C% w Est Avg Glu 6.5 % (4.0-6.0)
[2021-12-21 17:47] LABS: Hep C Virus Ab w/Reflex Quant NEGATIVE s/c (NEGATIVE)
== END ==
PROVIDERS: PCP Nurse Practitioner; Referring Provider Nurse Practitioner; Visit Provider Nurse Practitioner
DX: E11.9 Type 2 diabetes mellitus without complications (principal); E78.2 Mixed hyperlipidemia; F41.8 Other specified anxiety disorders; I10 Essential (primary) hypertension; I50.22 Chronic systolic (congestive) heart failure; Z11.59 Encounter for screening for other viral diseases
CPT/HCPCS: 36415; 80053; 80061; 83036; 84439; 84443; 84481; 86803